=== PATIENT | female | born 1980 | race Caucasian/White ===

== ENCOUNTER 2016-11-12 16:53 | Emergency (ER) | payer OTHER ==
[~2016-11-12] VITALS: Ht 149.9 cm; Wt 43.1 kg
[2016-11-12 17:34] VITALS: Ht 149.9 cm; Wt 43.1 kg
--- NOTE | 2016-11-12 18:33 | ERD ---
ER Documentation Chief Complaint Date/Time DATE: 11/12/16 TIME: 18:32 Chief Complaint Pt BIB RA for ETOH use found ouside 7-11. HPI 36-year-old female brought in via EMS after being found sleeping and intoxicated outside of the 711. The patient is minimally verbal and significantly intoxicated therefore the remainder of HPI is dramatically limited. There is no report of fall or injury. Patient is arousable to sternal rub. ROS All systems reviewed and are negative except as per history of present illness. Allergies Allergies: Coded Allergies: No Known Allergy (Unverified , 11/12/16) PMhx/Soc Medical and Surgical Hx: Unable to obtain Hx Alcohol Use: Yes Hx Substance Use: Yes Hx Tobacco Use: Yes Smoking Status: Current every day smoker FmHx Family History: No diabetes Physical Exam Vitals Vital Signs Date Time Temp Pulse Resp B/P Pulse Ox O2 Delivery O2 Flow Rate FiO2 11/12/16 17:34 98.8 97 18 104/65 96 Physical Exam General: Disheveled, intoxicated, responsive to sternal rub Head: Normocephalic, atraumatic. Eyes: Pupils equally reactive, EOM intact ENT: Moist mucous membranes Neck: Supple, no lymphadenopathy Respiratory: Lungs clear bilaterally, no distress Cardiovascular: RRR, no murmurs, rubs, or gallops Abdominal: Soft, non-tender, non-distended, no peritoneal signs : Deferred MSK: No edema, no unilateral swelling, 5/5 strength Neurologic: Uncooperative and significantly intoxicated but moving all extremities Skin: No rash, no evidence of trauma Psych: Normal mood Results 24 hrs Laboratory Tests Test 11/12/16 17:51 11/12/16 17:55 Bedside Glucose 151mg/dL Serum HCG, Qualitative NEGATIVE Ethyl Alcohol Level 448.0mg/dl Procedures/[place] EKG, MONITORS, & DIAGNOSTIC IMAGING: CT brain: No acute intracranial process LAB INTERPRETATION: Elevated alcohol level consistent with level of intoxication MEDICAL DECISION MAKING: The patient's presentation is consistent with acute alcohol intoxication I have a much lower clinical concern for clinically significant traumatic brain injury, meningitis, significant electrolyte disturbance The patient's workup will include appropriate laboratory testing and diagnostic imaging, as well as observation for sobriety. The patient's presentation is most consistent with acute alcohol intoxication leading to acute encephalopathy. The patient is protecting their airway. The patient has no signs or symptoms concerning for impending respiratory failure and does not require intubation at this time. The patient will require observation in the emergency room to allow for metabolization. Once the patient is able to ambulate on their own accord, navigate the community the patient can be safely discharged from the emergency room. ER COURSE: The patient will be observe for sobriety. Once she can ambulate she can be safely discharged home. She continues to protect her airway. She will likely require prolonged observation. I kept the patient and/or family informed of laboratory and diagnostic imaging results throughout the emergency room course. DISPOSITION PLAN: Pending reevaluation but anticipate discharge home Departure Diagnosis: Primary Impression: Alcoholic intoxication Condition: Stable NISHANT RODGERS MD Nov 12, 2016 18:33
--- NOTE | 2016-11-12 19:15 | RADRPT ---
PROCEDURE: CT Brain without contrast. CLINICAL INDICATION: Altered mental status TECHNIQUE: A CT of the brain was performed on a GE [id number] 64-slice CT scanner utilizing axial imaging from the skull base through the vertex without IV contrast. Multiplanar reformatted images were made. Images were reviewed on a PACS workstation. The CTDIvol is 45.00 mGy and the DLP is 630 .20 mGycm. One of the following 3 dose reduction techniques were used: Automated exposure control; adjustment of the mA and/or kV according to patient size; or use of iterative reconstruction technique. COMPARISON: None available FINDINGS: There is no intracranial hemorrhage, mass effect, or midline shift. No extra-axial fluid collection is seen. The ventricles and sulci are normal in size and configuration. The density of the brain is normal, and the rodriguez white matter differentiation appears well-preserved. The visualized scalp and calvarium are normal. The bilateral orbits are normal. The bilateral para nasal sinuses, mastoid air cells and middle ear cavities are clear. IMPRESSION: 1. No evidence of acute intracranial hemorrhage, infarcts, or acute intracranial pathology. 2. Normal noncontrast head CT. RPTAT: [facility] .Galina Rodriguez MD, Date Time Electronically viewed and signed by .Galina Rodriguez MD, MD on 11/12/2016 19:15 .C/
[2016-11-13] MEDS ORDERED: ONDANSETRON 4 MG INJ IM STA (02:17)
[2016-11-13 03:01] VITALS: BP 110/68; PULSE 75; RESP 18; TEMP 97.9
== END 2016-11-13 03:05 | disposition home or self-care (01) ==
LOC: E/R 16:53
DX: F10.120 Alcohol abuse with intoxication, uncomplicated (principal); F17.210 Nicotine dependence, cigarettes, uncomplicated; R41.82 Altered mental status, unspecified
CPT/HCPCS: 70450; 80306; 82962; 84703